=== PATIENT | male | born 1955 | race Two or more races ===

== ENCOUNTER 2018-03-20 05:03 | Emergency (ER) | payer OTHER ==
[~2018-03-20] VITALS: Ht 182.9 cm; Wt 126.1 kg
[2018-03-20] MEDS: OXYMETAZOLINE HCL NASAL SPRAY 30 ML BOTTLE NS ONE (05:15)
[2018-03-20] MEDS ORDERED: OXYMETAZOLINE HCL NASAL SPRAY 30 ML BOTTLE NS ONE (05:16)
[2018-03-20] MEDS ORDERED: LISINOPRIL (20MG) 20 MG TABLET PO STA (05:23)
[2018-03-20] MEDS ORDERED: METOPROLOL SUCCINATE 50 MG TAB.SR.24H PO STA (05:23)
--- NOTE | 2018-03-20 05:25 | NUR ---
PT BIB [facility] 878 WITH A C/O EPISTAXIS SINCE EARLY THIS AM. PT STATED THAT IT IS THE 4TH TIME THIS WEEK AND "IT USUALLY STOPS". PT ACTIVE BLEEDING FROM BILATERAL NARES. PT IS AA&O X4. PT DENIES N/V. PT'S BP IS ELEVATED AND HAS HX OF AFIB. PT IS ON THE MONITOR AND CONTINUOUS PULSE OX. DR. HARP IS AT THE BEDSIDE. PT HAS A NOSE CLIP ON. PT IS DIAPHORETIC AND INTERMITTENTLY TACHY.
--- NOTE | 2018-03-20 05:36 | NUR ---
LAB DRAW AT THE BEDSIDE.
[2018-03-20] MEDS ORDERED: METOPROLOL TARTRATE 50 MG TABLET ONE (05:40)
--- NOTE | 2018-03-20 05:40 | NUR ---
DR. HARP IS AT THE BEDSIDE FOR RHINO ROCKET INSERTION. AFRIN USED BILATERALLY.
[2018-03-20 05:42] LABS: BASOPHILS # (AUTO) 0.1 /CMM (0.0-0.2); BASOPHILS % (AUTO) 0.9 % (0.0-2.0); EOSINOPHILS % (AUTO) 7.3 % (0.0-6.0); HEMATOCRIT 51 % (39-51); HEMOGLOBIN 16.9 g/dL (13.5-17.5); LYMPHOCYTES # (AUTO) 2.5 /CMM (0.8-4.8); LYMPHOCYTES % (AUTO) 24.2 % (20.0-44.0); MEAN CORPUSCULAR HEMOGLOBIN 30 PG (26.0-33.0); MEAN CORPUSCULAR HGB CONC 33 g/dl (31.0-36.0); MEAN CORPUSCULAR VOLUME 91 fL (80-96); MONOCYTES # (AUTO) 0.7 /CMM (0.1-1.30); MONOCYTES % (AUTO) 6.8 % (2.0-12.0); NEUTROPHILS # (AUTO) 6.3 /CMM (1.8-8.9); NEUTROPHILS % (AUTO) 60.8 % (43.0-81.0); PLATELET COUNT (AUTO) 305 /CMM (150-450); RDW COEFFICIENT OF VARIATION 13.7 (11.5-15.0); RED BLOOD CELL COUNT(AUTO) 5.64 MIL/uL (4.5-6.0); WHITE BLOOD COUNT (AUTO) 10.4 K/uL (4.3-11.0)
--- NOTE | 2018-03-20 05:50 | NUR ---
RHINO ROCKET IN L NARE. PT HAS ACTIVE POSTERIOR BLEEDING. PT IS RINSING MOUTH AND SPITTING. EMILE BLOOD AND CLOTS NOTED.
[2018-03-20] MEDS: METOPROLOL TARTRATE 50 MG TABLET PO ONE (05:53)
[2018-03-20 05:54] LABS: CALCIUM, SERUM 9.2 mg/dL (8.5-10.1); CREATININE 2.2 mg/dL (0.6-1.3)
--- NOTE | 2018-03-20 05:55 | NUR ---
SUCTIONING DONE BY DR. HARP OF BILATERAL NARES.
[2018-03-20 05:59] LABS: INR 2.41 (0.87-1.13)
--- NOTE | 2018-03-20 06:12 | NUR ---
POSTERIOR RHINO ROCKET INSERTED BY DR. HARP. PT RINSED MOUTH WITH WATER AND SPIT OUT EMILE BLOOD AND CLOTS. PT IS SITTING IN HIGH FOWLERS.
[2018-03-20] MEDS ORDERED: ONDANSETRON HCL/PF 4 MG/2 ML VIAL ONE (06:16)
--- NOTE | 2018-03-20 06:16 | NUR ---
PT REC'D [address]FRAN [address]P [address] HARP. PT STATED THAT HE FELT NAUSEATED.
--- NOTE | 2018-03-20 06:40 | NUR ---
PT HAS A YANKEUR AND IS USING IT TO SUCTION ANY BLOOD THAT MAY DRIP INTO HIS MOUTH.
--- NOTE | 2018-03-20 06:40 | NUR ---
SPOKE TO ROGER NAPOLES FRONT DESK REPRESENTATIVE AND STATES "I WILL CALL YOU BACK"
[2018-03-20] MEDS: ONDANSETRON HCL/PF 4 MG/2 ML VIAL IV ONE (06:42)
[2018-03-20] MEDS ORDERED: CALC0.253 PO (06:44)
[2018-03-20] MEDS ORDERED: MULT1TAB73 PO (06:44)
[2018-03-20] MEDS ORDERED: METO200T49 PO (06:47)
[2018-03-20] MEDS ORDERED: WARF5TAB77 PO (06:47)
[2018-03-20] MEDS ORDERED: ATOR10TA PO (06:47)
[2018-03-20] MEDS ORDERED: LISI-603 PO (06:47)
[2018-03-20] MEDS ORDERED: WARF6TAB23 PO (06:47)
[2018-03-20] MEDS ORDERED: FURO-145 PO (06:47)
[2018-03-20] MEDS ORDERED: PANT40TA2 PO (06:47)
--- NOTE | 2018-03-20 06:47 | NUR ---
DR. HURT IS SPEAKING TO DR. EVARISTO PEREZ AT [facility].
--- NOTE | 2018-03-20 06:58 | NUR ---
PT'S IV CAME OUT
--- NOTE | 2018-03-20 07:00 | NUR ---
18G IV STARTED IN LAC.
[2018-03-20] MEDS ORDERED: DILTIAZEM HCL 25 MG IV ONE (07:06)
--- NOTE | 2018-03-20 07:07 | NUR ---
PT'S BP IS ELEVATED. MD NOTIFIED AND NEW ORDERS GIVEN.
[2018-03-20] MEDS: DILTIAZEM HCL 50 MG IV IV ONE (07:11)
--- NOTE | 2018-03-20 07:20 | NUR ---
REPORT GIVEN TO MICHAEL RANDOLPH FOR [facility].
--- NOTE | 2018-03-20 08:00 | NUR ---
PT STILL NOTED TO BE ACTIVELY BLEEDING. PROVIDED EXTRA TOWELS, TISSUES AND ICE PACK REQUESTED. BP TRENDING DOWN. PT REMAINES AAOX4. SAFETY AND COMFORT MEASURES PROVIDED. WILL MONITOR.
--- NOTE | 2018-03-20 08:30 | NUR ---
KELVIN NAPOLES CM: [phone]
--- NOTE | 2018-03-20 09:07 | NUR ---
DR. FITZGERALD FROM [place] CALLED FOR DOCTOR TO DOCTOR CALL FOR TRANSFER. DR. HURT GIVING REPORT.
--- NOTE | 2018-03-20 10:24 | NUR ---
PER MARYBETH WARREN, NO ACCEPTING ENT AT [facility]. UNABLE TO TRANSFER PATIENT TO [facility]. ALL PAPERWORK SENT TO [facility], AWAITING DR. FERRO TO CALL FOR DOCTOR TO DOCTOR.
--- NOTE | 2018-03-20 11:08 | NUR ---
FOLLOW UP CALL MADE TO KELVIN RUEDA. AWAITNIG DR. FERRO'S CALL STILL.
--- NOTE | 2018-03-20 11:29 | NUR ---
CASE PRESENTED TO [facility] [phone], SPOKE TO LILLIE.
--- NOTE | 2018-03-20 12:22 | NUR ---
CALLED [facility], SPOKE WITH ASAD CORDOBA DENIED PT, WAITING TO HEAR FROM [facility].
--- NOTE | 2018-03-20 12:24 | NUR ---
SPOKE TO KELVIN NAPOLES CM: [phone], INFORMED THAT Vinay MARQUEZ WILL NOT SEE THE PATIENT IN HIS OFFICE. DR HURT SPOKE TO DR COKER EARLIER.
--- NOTE | 2018-03-20 12:45 | NUR ---
PT SIGNED CONSENT TO BLOOD TRANSFUSION. VERBALIZED UNDERSTANDING. ALL QUESTIONS ANSWERED.
--- NOTE | 2018-03-20 13:01 | NUR ---
KELVIN NAPOLES CM: [phone] CALLED, STILL WORKING ON ENT TRANSFER.
--- NOTE | 2018-03-20 13:10 | NUR ---
ON PHONE WITH ENT FROM [facility]
--- NOTE | 2018-03-20 13:14 | NUR ---
FFP TRANSFUSION INITIATED. WITNESSED AND VERIFIED BY VICKY RODRIGUEZ. VSS. PT AOOX4. WILL CONTINUE TO MONITOR.
--- NOTE | 2018-03-20 13:22 | NUR ---
PT ACCEPTED TO [facility] ER BY ENT AND ER DR. PERALTA, NUMBER TO GIVE REPORT IS [phone]. [facility] REFERENCE NUMBER IS [id number]
--- NOTE | 2018-03-20 13:23 | NUR ---
CALLED [facility] FOR TRANSPORT TO [facility] ER, ETA [phone], TRIP #[id number]
[2018-03-20 13:37] LABS: BASOPHILS # (AUTO) 0.1 /CMM (0.0-0.2); BASOPHILS % (AUTO) 0.4 % (0.0-2.0); EOSINOPHILS % (AUTO) 0.5 % (0.0-6.0); HEMATOCRIT 50 % (39-51); HEMOGLOBIN 16.7 g/dL (13.5-17.5); LYMPHOCYTES # (AUTO) 1.6 /CMM (0.8-4.8); LYMPHOCYTES % (AUTO) 9.9 % (20.0-44.0); MEAN CORPUSCULAR HEMOGLOBIN 30 PG (26.0-33.0); MEAN CORPUSCULAR HGB CONC 34 g/dl (31.0-36.0); MEAN CORPUSCULAR VOLUME 89 fL (80-96); MONOCYTES # (AUTO) 0.9 /CMM (0.1-1.30); MONOCYTES % (AUTO) 5.5 % (2.0-12.0); NEUTROPHILS # (AUTO) 13.6 /CMM (1.8-8.9); NEUTROPHILS % (AUTO) 83.7 % (43.0-81.0); PLATELET COUNT (AUTO) 355 /CMM (150-450); RED BLOOD CELL COUNT(AUTO) 5.59 MIL/uL (4.5-6.0); WHITE BLOOD COUNT (AUTO) 16.3 K/uL (4.3-11.0)
--- NOTE | 2018-03-20 13:42 | NUR ---
CALLED [facility] TO CANCEL TRANSPORT TO [facility] ER DUE TO FAMILY NOT WANTING TO GO THERE BECAUSE "IT IS TOO FAR".
--- NOTE | 2018-03-20 13:48 | NUR ---
CALLED [facility], SPOKE WITH HUMPHREY, INFORMED HIM PT AND PT'S FAMILY MEMBER DOES NOT WANT PT TO GO TO [facility] ER AND TO CANCEL TRANSFER.
--- NOTE | 2018-03-20 15:29 | NUR ---
CALLED KELVIN WITH [facility] FOR UPDATE ON PT, PER KELVIN SHE MADE AN APPT WITH AN ENT TO SEE THE PT ON Sunday03/22/[address]ERIC HARLEY AT [address] [place] [address]. [address] [place] [address] . KELVIN TRIED TO GET AN ACCEPTING ENT AT [facility], [facility], [facility], AND [facility], THEY ALL DENIED.
--- NOTE | 2018-03-20 15:30 | NUR ---
ASSISTED PT TO THE RESTROOM. PROVIDED CLEAN TOWELS, GAUZE, ICE. UPDATED PT WITH POC.
--- NOTE | 2018-03-20 15:59 | NUR ---
AT BS AND SPOKE TO PT AND SISTER RE POC.
--- NOTE | 2018-03-20 16:00 | NUR ---
CALLED BACK [facility] TO INFORM THEM PT WANTS TO GO TO [facility] ER NOW, SPOKE WITH EMILE, HE INFORMED ME TO GO AHEAD AND SEND THE PT, THE SAME MD'S ARE ACCEPTING.
--- NOTE | 2018-03-20 16:03 | NUR ---
RECEIVED REPORT FROM MICHAEL RANDOLPH FOR [facility].
--- NOTE | 2018-03-20 16:11 | NUR ---
CALLED [facility] FOR TRANSPORT TO [facility], ETA 1 HOUR, TRIP #[id number]
--- NOTE | 2018-03-20 16:11 | NUR ---
PT APPEARS COMFORTABLE. VSS. PT WITH LEFT NARE RHINO ROCKET INTACT.
[2018-03-20] MEDS ORDERED: ACETAMINOPHEN 325 MG TABLET ONE (16:41)
[2018-03-20] MEDS: ACETAMINOPHEN 325 MG TABLET PO ONE (16:42)
--- NOTE | 2018-03-20 16:47 | NUR ---
REPORT GIVEN TO [facility] FOR [facility], ETA INTERNAL GRINDER TENDER 1 HR.
[2018-03-20 17:01] VITALS: BP 138/65
--- NOTE | 2018-03-20 17:01 | NUR ---
2ND BAG OF FRESH PLASMA TRANFUSING ORDERED, VERIFIED BY 2ND RN VICKY. PT TOLERATIING TRANSFUSION. NO ASE NOTED.
[2018-03-20 17:06] VITALS: BP 132/84
--- NOTE | 2018-03-20 17:19 | NUR ---
REPORT GIVEN TO [facility] Orozco FOR [facility]. PT AWARE OF TRANSFER, VSS, IV INTACT AND PATENT. NO S/S INFILTRATION OR INFECTION. PT WITH ALL PERSONAL BELONGINGS. PT TO BE TRANSFERRED VIA GURNEY TO [facility] ER.
[2018-03-20 17:25] VITALS: BP 130/77
[2018-03-20 17:46] VITALS: BP 126/80
--- NOTE | 2018-03-20 17:51 | NUR ---
PLASMA TRANSFUSED AND COMPLETED. NO ASE NOTED. VSS. PT TRANSFERRED TO [facility] VIA GURNEY. PER [facility] TOOK OVER CARE.
[2018-03-20 17:57] VITALS: BP 147/70
== END 2018-03-20 18:03 | disposition short-term general hospital (02) ==
LOC: ER 05:06
DX: R04.0 Epistaxis (principal); I13.0 Hypertensive heart and chronic kidney disease with heart failure and stage 1 through stage 4 chronic kidney disease, or unspecified chronic kidney disease; N18.9 Chronic kidney disease, unspecified; R79.1 Abnormal coagulation profile; I50.9 Heart failure, unspecified; I48.91 Unspecified atrial fibrillation
CPT/HCPCS: 36415; 80048-TC; 85025-TC; 85610-TC; 86850-TC; A4606; J2405; J3490; P9017-BL; Z7610